=== PATIENT | female | born 1985 | race Caucasian/White ===

== ENCOUNTER 2018-12-21 19:00 | Emergency (ER) | payer MEDICAID ==
[~2018-12-21] VITALS: Ht 157.5 cm; Wt 70.3 kg
[2018-12-21 19:42] LABS: PLATELET COUNT 409 x10^3mcL (130-400)
[2018-12-21 19:45] LABS: CALCIUM 8.2 mg/dL (8.5-10.1); CARBON DIOXIDE 24.5 mmol/L (21-32); CHLORIDE SERUM 103 mmol/L (98-107); CREATININE SERUM 0.6 mg/dL (0.6-1.0); GFR1 > 60 mL/min; GLUCOSE SERUM 146 mg/dL (74-106); POTASSIUM SERUM 3.5 mmol/L (3.5-5.1); SODIUM SERUM 132 mmol/L (136-145)
[2018-12-21 19:49] LABS: ALBUMIN 3.5 g/dL (3.4-5.0); ALKALINE PHOSPHATASE 76 U/L (46-116); ALT/SGPT 30 U/L (14-59); AST/SGOT 24 U/L (15-37); BILIRUBIN TOTAL 0.28 mg/dL (0.20-1.00); LIPASE 127 IU/L (73-393)
[2018-12-21 19:51] LABS: TOTAL PROTEIN, SERUM 8.8 g/dL (6.4-8.2)
[2018-12-21 20:27] LABS: BAND NEUTROPHIL 3 % (0-10); METAMYELOCTE 3 % (0-2); SEGMENTED NEUTROPHILS 87 % (37-75)
[2018-12-21 20:30] LABS: ovalocyte/elliptocyte 1+
[2018-12-21 20:31] LABS: PLATELET MORPHOLOGY PLATELETS NORMAL; rbc morphology (normal/abnorm) ABNORMAL (NORMAL)
[2018-12-21 21:08] VITALS: BP 106/58
== END 2018-12-21 21:09 | disposition home or self-care (01) ==
LOC: ED 19:00
PROVIDERS: Emergency Medicine
DX: J10.1 Influenza due to other identified influenza virus with other respiratory manifestations (principal); E86.0 Dehydration; D64.9 Anemia, unspecified
CPT/HCPCS: 87804; J7030; Q0092

== ENCOUNTER 2020-08-09 15:22 | Emergency (ER) | payer MEDICAID ==
[~2020-08-09] VITALS: Ht 157.5 cm; Wt 64.4 kg
[2020-08-09 15:52] LABS: BASOPHIL % 0.2 % (0-2)
[2020-08-09 15:57] LABS: PLATELET COUNT 426 x10^3mcL (130-400); RED CELL DISTRIBUTION WIDTH 22.6 % (11.5-14.5)
[2020-08-09 16:19] LABS: CALCIUM 8.9 mg/dL (8.5-10.1); CARBON DIOXIDE 27.2 mmol/L (21-32); CHLORIDE SERUM 101 mmol/L (98-107); CREATININE SERUM 0.5 mg/dL (0.6-1.0); GFR1 > 60 mL/min; GLUCOSE SERUM 95 mg/dL (74-106); POTASSIUM SERUM 3.6 mmol/L (3.5-5.1); SODIUM SERUM 135 mmol/L (136-145)
[2020-08-09 16:25] LABS: ALBUMIN 3.5 g/dL (3.4-5.0); ALKALINE PHOSPHATASE 72 U/L (46-116); ALT/SGPT 19 U/L (14-59); AST/SGOT 16 U/L (15-37); BILIRUBIN TOTAL 0.3 mg/dL (0.20-1.00); TOTAL PROTEIN, SERUM 7.9 g/dL (6.4-8.2)
[2020-08-09 16:36] LABS: rbc morphology (normal/abnorm) ABNORMAL (NORMAL)
[2020-08-09 20:00] VITALS: BP 102/59
== END 2020-08-09 20:00 | disposition home or self-care (01) ==
LOC: ED 15:22
PROVIDERS: Emergency Medicine
DX: N76.0 Acute vaginitis (principal)
CPT/HCPCS: 87491; 87591; Q0092